=== PATIENT | male | born 1980 | race Caucasian/White ===

== ENCOUNTER 2017-02-06 14:05 | Emergency (ER) | payer BC ==
[2017-02-06] MEDS ORDERED: ACETAMINOPHEN 325 MG TAB PO ONE (14:23)
--- NOTE | 2017-02-06 14:27 | Emergency Department Record ---
History of Present Illness - General Chief complaint: Head Injury Stated complaint: SLURRED SPEECH,FATIGUE,CONFUSSION,HIT RT TENRIISM Time Seen by Provider: 02/06/17 14:15 Source: Patient Mode of Arrival: Ambulatory Limitations: No limitations Travel/[place]posure [place] [facility] [place] 21 [place] of Symptoms: No - History of Present Illness Initial comments: The patient was bending into his car to strip picker some trash and bumped the R side of his head on the door frame. He had no LOC but was mildly confused and with slightly slurred speech after. Due to that the patient's made him come to the ER. Presently the patient feels better but does have a slight VALDEZ. He states he has a remote hx of a head injury and whenever he even bumps his head slightly gets confused and feels unsteady. The patient states the symptoms he is feeling now are normal for him when he bumps his head. The patient did not fall after and is not on any blood thinners. MD Complaint: Head injury Onset/Timin -: Minutes(s) Mechanism of Injury: Other Location: Parietal Loss of Consciousness: No Place: Home Radiation: None Quality: Aching Consistency: Constant Provoking factors: None known Other Injuries: None Associated Symptoms: Confusion - Related Data Home Medications Medication Instructions Recorded Confirmed Last Taken No Home Med [NO HOME MEDS] 02/06/17 02/06/17 Unknown Allergies/Adverse reactions: Allergies Allergy/AdvReac Type Severity Reaction Status Date / Time naproxen Allergy HIVES Verified 02/06/17 14:16 Penicillins Allergy PT UNSURE Verified 02/06/17 14:16 OF REACTION prednisolone Allergy HIVES Verified 02/06/17 14:16 prednisone Allergy HIVES Verified 02/06/17 14:16 codeine AdvReac VOMITING Verified 02/06/17 14:16 Travel Screening - Travel/Exposure Within Last 30 Days Have you traveled within the last 30 days?: No Review of Systems Constitutional: Denies: Chills, Fever Eyes: Denies: Eye discharge ENT: Denies: Congestion Respiratory: Denies: Cough, Dyspnea Past Medical History - SOCIAL HISTORY Smoking Status: Never smoker Alcohol Use: None Drug Use: None - RESPIRATORY Hx Respiratory Disorders: No - CARDIOVASCULAR Hx Cardio Disorders: No - NEURO Hx Neuro Disorders: Yes Hx Headaches: Yes - GI Hx GI Disorders: No - Hx Genitourinary Disorders: No - ENDOCRINE Hx Endocrine Disorders: No - MUSCULOSKELETAL Hx Musculoskeletal Disorders: No - PSYCH Hx Psych Problems: No - HEMATOLOGY/ONCOLOGY Hx Hematology/Oncology Disorders: No Family Medical History Any Significant Family History?: No Physical Exam - General General Appearance: Alert, Oriented x3, Cooperative, No acute distress - Head Head exam: Atraumatic, Normocephalic, Normal inspection (There are no areas of erythema or edema or any signs of any injury.) Head exam detail: negative: Abrasion, Contusion - Eye Eye exam: Normal appearance, PERRL, EOMI - ENT ENT exam: TM's normal bilaterally - Neck Neck exam: Normal inspection, Full ROM. negative: Lymphadenopathy, Meningismus , Tenderness - Respiratory Respiratory exam: Normal lung sounds bilaterally. negative: Respiratory distress - Cardiovascular Cardiovascular Exam: Regular rate, Normal rhythm, Normal heart sounds - GI/Abdominal GI/Abdominal exam: Soft, Normal bowel sounds. negative: Tenderness - Extremities Extremities exam: Normal inspection, Full ROM, Normal capillary refill. negative: Tenderness - Neurological Neurological exam: Alert, Normal gait, Oriented X3, Reflexes normal. negative: Abnormal gait, Altered, Motor sensory deficit Course Vital Signs 02/06/17 14:09 Temperature 97.6 F Pulse Rate 101 H Respiratory 18 Rate Blood Pressure 110/94 Pulse Ox 98 - Reevaluation(s) Reevaluation #1: The patient is doing much better at this time. His speech is back to normal and he is answering all questions normally. His gait is steady and normal and he has a neg Drift and Rhomberg exams. I did discuss the neg head CT with the patient and the need to F/U if not 100% improved the next 1-2 days. 02/06/17 15:42 Medical Decision Making - Data Complexity MDM Data: X-Ray Ordered and/or Reviewed - Radiology Data Radiology results: Report reviewed (Head CT: Neg.) Disposition Disposition: Discharge Clinical Impression: Minor head injury Qualifiers: Encounter type: initial encounter Qualified Code(s): S00.90XA - Unspecified superficial injury of unspecified part of head, initial encounter Disposition: Home, Self-Care Condition: (1) Good Instructions: Concussion (ED) Additional Instructions: Please use Tylenol for pain and rest. Please see your PCP if not 100% better in 1-2 days. Return to the ER for any increased head pain, slurred speech, confusion or balance issues. Forms: Patient Portal Access Time of Disposition: 15:41 Quality - Quality Measures Quality Measures: N/A - Blood Pressure Screening View Details: Yes Does Patient Have Any of the Following: No Blood Pressure Classification: Pre-Hypertensive BP Reading Systolic Measurement: 122 Diastolic Measurement: 85 Screening for High Blood Pressure: < Pre-Hypertensive BP, F/U Documented > [ G8950] Pre-Hypertensive Follow-up Interventions: Referral to alternative/primary care provider.
--- NOTE | 2017-02-07 07:33 | CT SCAN REPORT ---
EXAM: CT OF THE BRAIN WITHOUT CONTRAST HISTORY: HEADACHE. TECHNIQUE: Sequential axial images were obtained from the foramen magnum to the vertex without contrast administration. FINDINGS: The brain volume is normal. No large territorial infarct, hemorrhage, mass effect, or midline shift. No extraaxial fluid collection. The orbits, paranasal sinuses, and mastoid air cells are normal. IMPRESSION: NO ACUTE INTRACRANIAL ABNORMALITY IS APPRECIATED. JOB NUMBER: [id number] MTDD
== END 2017-02-06 15:53 | disposition home or self-care (01) ==
LOC: ER 14:05
DX: S00.90XA Unspecified superficial injury of unspecified part of head, initial encounter (principal); R51 Headache; R47.81 Slurred speech; Y92.007 Garden or yard of unspecified non-institutional (private) residence as the place of occurrence of the external cause
CPT/HCPCS: 70450; 99283

== ENCOUNTER 2017-12-27 11:04 | Emergency (ER) | payer BC ==
--- NOTE | 2017-12-27 11:35 | Emergency Department Record ---
History of Present Illness - General Chief complaint: Lower Extremity Pain Stated complaint: LEG PAIN Time Seen by Provider: 12/27/17 11:18 Source: Patient, RN notes reviewed Mode of Arrival: Wheelchair - History of Present Illness Initial comments: right ankle pain lateral ankle and no trauma wake up with pain during the night and the ankle appears swollen and he stated he has elevated uric acid but never had any joint pain. No calf pain or thigh pain. Onset/Timin -: Hour(s) Location: Right, Ankle, Lower Leg History of Same: No (ended up being gout) Severity scale (1-10): 7 Improves with: Nothing Worsens with: Nothing - Related Data Home Medications Medication Instructions Recorded Confirmed Last Taken Loratadine/Pseudoephedrine 1 tab PO DAILY 12/27/17 12/27/17 Unknown [Claritin-D 24 Hour Tablet] Previous Rx's Medication Instructions Recorded Colchicine [Colcrys] 0.6 mg PO TID #10 tab 12/27/17 Allergies Allergy/AdvReac Type Severity Reaction Status Date / Time naproxen Allergy HIVES Verified 12/27/17 11:16 Penicillins Allergy PT UNSURE Verified 12/27/17 11:16 OF REACTION prednisolone Allergy HIVES Verified 12/27/17 11:16 prednisone Allergy HIVES Verified 12/27/17 11:16 codeine AdvReac VOMITING Verified 12/27/17 11:16 Travel Screening - Travel/Exposure Within Last 30 Days Have you traveled within the last 30 days?: No - Travel/Exposure Within Last Year Have you traveled outside the [place] in the last year?: No - Additonal Travel Details Have you been exposed to anyone with a communicable illness?: No - Travel Symptoms Symptom Screening: None Review of Systems Reviewed: No additional complaints except as noted below Constitutional: Reports: As per HPI. Denies: Chills, Fever, Malaise, Night sweats, Weakness, Weight change Eyes: Reports: As per HPI. Denies: Eye discharge, Eye pain, Photophobia, Vision change ENT: Reports: As per HPI. Denies: Congestion, Dental pain, Ear pain, Epistaxis , Hearing loss, Throat pain Respiratory: Reports: As per HPI. Denies: Cough, Dyspnea, Hemoptysis, Stridor, Wheezes Cardiovascular: Reports: As per HPI. Denies: Arrhythmia, Chest pain, Dyspnea on exertion, Edema, Murmurs, Orthopnea, Palpitations, Paroxysmal nocturnal dyspnea, Rheumatic Fever, Syncope Endocrine: Reports: As per HPI. Denies: Fatigue, Heat or cold intolerance, Polydipsia, Polyuria Gastrointestinal: Reports: As per HPI. Denies: Abdominal pain, Constipation, Diarrhea, Hematemesis, Hematochezia, Melena, Nausea, Vomiting Genitourinary: Reports: As per HPI. Denies: Dysuria, Frequency, Hematuria, Incontinence, Retention, Testicular pain, Testicular mass, Urgency Musculoskeletal: Reports: As per HPI, Arthralgia. Denies: Back pain, Gout, Joint swelling, Myalgia, Neck pain Skin: Reports: As per HPI. Denies: Bruising, Change in color, Change in hair/ nails, Lesions, Pruritus, Rash Neurological: Reports: As per HPI. Denies: Abnormal gait, Confusion, Headache, Numbness, Paresthesias, Seizure, Tingling, Tremors, Vertigo, Weakness Psychiatric: Reports: As per HPI. Denies: Anxiety, Auditory hallucinations, Depression, Homicidal thoughts, Suicidal thoughts, Visual hallucinations Hematological/Lymphatic: Reports: As per HPI. Denies: Anemia, Blood Clots, Easy bleeding, Easy bruising, Swollen glands Past Medical History - SOCIAL HISTORY Smoking Status: Never smoker Alcohol Use: None Drug Use: None - RESPIRATORY Hx Respiratory Disorders: No - CARDIOVASCULAR Hx Cardio Disorders: No - NEURO Hx Neuro Disorders: Yes Hx Headaches: Yes Hx TIA: Yes - GI Hx GI Disorders: No - Hx Genitourinary Disorders: No - ENDOCRINE Hx Endocrine Disorders: No - MUSCULOSKELETAL Hx Musculoskeletal Disorders: Yes Hx Gout: Yes - PSYCH Hx Psych Problems: No - HEMATOLOGY/ONCOLOGY Hx Hematology/Oncology Disorders: No Family Medical History Any Significant Family History?: No Physical Exam - General General Appearance: Alert, Oriented x3, Cooperative, No acute distress - Head Head exam: Normal inspection - Eye Eye exam: Normal appearance, PERRL Pupils: Normal accommodation - ENT ENT exam: Normal exam, Mucous membranes moist, Normal external ear exam, Normal orophraynx, TM's normal bilaterally Ear exam: Normal external inspection. negative: External canal tenderness Nasal Exam: Normal inspection. negative: Discharge, Sinus tenderness Mouth exam: Normal external inspection, Tongue normal Teeth exam: Normal inspection. negative: Dental caries Throat exam: Normal inspection. negative: Tonsillar erythema, Tonsillar exudate - Neck Neck exam: Normal inspection, Full ROM. negative: Tenderness - Respiratory Respiratory exam: Normal lung sounds bilaterally. negative: Respiratory distress - Cardiovascular Cardiovascular Exam: Regular rate, Normal rhythm, Normal heart sounds - GI/Abdominal GI/Abdominal exam: Soft, Normal bowel sounds. negative: Tenderness - Rectal Rectal exam: Deferred - exam: Deferred - Extremities Extremities exam: Normal inspection, Full ROM, Normal capillary refill. negative: Tenderness - Back Back exam: Reports: Normal inspection, Full ROM. Denies: Muscle spasm, Rash noted, Tenderness - Neurological Neurological exam: Alert, Normal gait, Oriented X3, Reflexes normal - Psychiatric Psychiatric exam: Normal affect, Normal mood - Skin Skin exam: Dry, Intact, Normal color, Warm Course Vital Signs 12/27/17 11:05 Temperature 97.9 F Pulse Rate 85 Respiratory 20 Rate Blood Pressure 123/65 Pulse Ox 96 - Reevaluation(s) Reevaluation #1: patient is reluctant to take any medication and he agreed to taking one colcichine pill and I told I will write a script to continue and he said he would rather just adjust his diet and use chang extract. I told him the gout could cause problems with his joints ie deformities. 12/27/17 12:09 Reevaluation #2: cancil the imaging because the diagnoses obtained with lab work and clinical exam. 12/27/17 12:11 Medical Decision Making - Lab Data Result diagrams: 12/27/17 11:27 Disposition Clinical Impression: Gout attack Qualifiers: Gout site: ankle Gout etiology: idiopathic Laterality: right Qualified Code(s) : M10.071 - Idiopathic gout, right ankle and foot Disposition: Home, Self-Care Condition: (1) Good Additional Instructions: elevate leg use heat on his ankle follow up with family and if worse take colchicine three times a day for 2 days Prescriptions: Colchicine [Colcrys] 0.6 mg PO TID #10 tab Forms: Patient Portal Access Time of Disposition: 12:15 Quality - Quality Measures Quality Measures: N/A - Blood Pressure Screening Does Patient Have Any of the Following: No Blood Pressure Classification: Pre-Hypertensive BP Reading Systolic Measurement: 123 Diastolic Measurement: 65 Screening for High Blood Pressure: < Pre-Hypertensive BP, F/U Documented > [ G8950] Pre-Hypertensive Follow-up Interventions: Referral to alternative/primary care provider.
[2017-12-27 11:36] LABS: BASO % 0.2 % (0-6); EOS % 1.3 % (0-6); GRAN % 62.1 % (47-80); HEMOGLOBIN 15.6 gm/dl (14.0-18.0); LYMPH % 28.8 % (16-45); MEAN CELL VOLUME 93.7 fl (81-97); MEAN CORPUSCULAR HEMOGLOBIN 31.8 pg (27-33); MEAN CORPUSCULAR HGB CONC 33.9 g/dl (32-36); MONO % 7.6 % (0-9); PLATELET COUNT 256 K/uL (130-400); RED BLOOD COUNT 4.91 M/uL (4.40-5.70); RED CELL DISTRIBUTION WIDTH 13.1 % (11.5-14.5); WHITE BLOOD COUNT W/O DIFF 8.7 K/uL (4.2-12.2)
[2017-12-27] MEDS ORDERED: COLCHICINE 0.6 MG TABLET PO ONE (11:59)
== END 2017-12-27 12:40 | disposition home or self-care (01) ==
LOC: ER 11:04
DX: M10.071 Idiopathic gout, right ankle and foot (principal)
CPT/HCPCS: 84550; 85025; 99283; 99284

== ENCOUNTER 2018-09-12 19:08 | Emergency (ER) | payer BC ==
[2018-09-12] MEDS ORDERED: KETOROLAC 30 MG/ML VIAL IVP ONE (20:00)
[2018-09-12] MEDS ORDERED: 0.9 % SODIUM CHLORIDE 1,000 ML BAG IV ONE (20:00)
[2018-09-12 20:14] LABS: BASO % 0.2 % (0-6); EOS % 3.6 % (0-6); GRAN % 59.8 % (47-80); LYMPH % 29.7 % (16-45); MEAN CELL VOLUME 94.1 fl (81-97); MEAN CORPUSCULAR HEMOGLOBIN 31.4 pg (27-33); MEAN CORPUSCULAR HGB CONC 33.3 g/dl (32-36); MEAN PLATELET VOLUME 10.6 fl (7.4-10.4); MONO % 6.7 % (0-9); PLATELET COUNT 250 K/uL (130-400); RED BLOOD COUNT 4.78 M/uL (4.40-5.70); RED CELL DISTRIBUTION WIDTH 13.9 % (11.5-14.5); WHITE BLOOD COUNT W/O DIFF 10.2 K/uL (4.2-12.2)
[2018-09-12 20:18] LABS: URINE APPEARANCE CLEAR; URINE BILIRUBIN NEGATIVE (NEGATIVE); URINE BLOOD NEGATIVE (NEGATIVE); URINE COLOR YELLOW; URINE GLUCOSE (UA) NEGATIVE (NEGATIVE); URINE KETONE 40 mg/dL (NEGATIVE); URINE LEUKOCYTE ESTERASE NEGATIVE (NEGATIVE); URINE NITRITE NEGATIVE (NEGATIVE); URINE PROTEIN NEGATIVE (NEGATIVE); URINE UROBILINOGEN 0.2 E.U./dL (0.20 - 1.00)
[2018-09-12 20:24] LABS: BLOOD UREA NITROGEN 16 mg/dL (6-20); CREATININE 0.9 mg/dL (0.7-1.2); EST GLOMERULAR FILTRATION RATE > 60 mL/min; LIPASE 39 U/L (13-60); TOTAL PROTEIN 6.8 g/dL (6.6-8.7)
[2018-09-12 20:26] LABS: GLUCOSE,RANDOM 93 mg/dL (74-109)
[2018-09-12 20:29] LABS: ALBUMIN 4.2 g/dL (4.0-5.0); ALKALINE PHOSPHATASE 78 U/L (40-129); ALT/SGPT 31 U/L (<41); AST/SGOT 20 U/L (10.0-50.0); BILIRUBIN,DIRECT < 0.2 mg/dL (0-0.3)
--- NOTE | 2018-09-12 21:52 | Emergency Department Record ---
History of Present Illness - General Chief complaint: Flank Pain Stated complaint: RT ABDOMINAL PAIN RADIATING TO BASCK Time Seen by Provider: 09/12/18 19:52 Source: Patient Mode of Arrival: Ambulatory Limitations: No limitations - History of Present Illness Initial comments: pt has pain in r abdomen.he has nausea but no v/c/d. pain got worse when he laughed. Onset/Timin -: Days(s) Location: Right flank Radiation: RLQ Severity: Moderate Severity scale (1-10): 8 Consistency: Intermittent, Getting worse Improves with: Rest Worsens with: None Other Reports: Nausea/vomiting - Related Data Sexually active: Yes Previous Rx's Medication Instructions Recorded Albuterol Sulfate [Proair Hfa] 2 puff IH QID PRN #1 inhaler 02/10/18 Dicyclomine HCl [Bentyl] 10 mg PO Q8H #10 cap 09/12/18 Allergies Allergy/AdvReac Type Severity Reaction Status Date / Time naproxen Allergy HIVES Unverified 04/12/18 09:25 Penicillins Allergy PT UNSURE Unverified 04/12/18 09:25 OF REACTION prednisolone Allergy HIVES Unverified 04/12/18 09:25 prednisone Allergy HIVES Unverified 04/12/18 09:25 codeine AdvReac VOMITING Unverified 04/12/18 09:25 Travel Screening - Travel/Exposure Within Last 30 Days Have you traveled within the last 30 days?: No - Travel Symptoms Symptom Screening: None Review of Systems Reviewed: No additional complaints except as noted below Constitutional: Reports: As per HPI. Denies: Chills, Fever, Malaise, Night sweats, Weakness, Weight change Eyes: Reports: As per HPI. Denies: Eye discharge, Eye pain, Photophobia, Vision change ENT: Reports: As per HPI. Denies: Congestion, Dental pain, Ear pain, Epistaxis , Hearing loss, Throat pain Respiratory: Reports: As per HPI. Denies: Cough, Dyspnea, Hemoptysis, Stridor, Wheezes Cardiovascular: Reports: As per HPI. Denies: Arrhythmia, Chest pain, Dyspnea on exertion, Edema, Murmurs, Orthopnea, Palpitations, Paroxysmal nocturnal dyspnea, Rheumatic Fever, Syncope Endocrine: Reports: As per HPI. Denies: Fatigue, Heat or cold intolerance, Polydipsia, Polyuria Gastrointestinal: Reports: As per HPI. Denies: Abdominal pain, Constipation, Diarrhea, Hematemesis, Hematochezia, Melena, Nausea, Vomiting Genitourinary: Reports: As per HPI. Denies: Dysuria, Frequency, Hematuria, Incontinence, Retention, Testicular pain, Testicular mass, Urgency Musculoskeletal: Reports: As per HPI. Denies: Arthralgia, Back pain, Gout, Joint swelling, Myalgia, Neck pain Skin: Reports: As per HPI. Denies: Bruising, Change in color, Change in hair/ nails, Lesions, Pruritus, Rash Neurological: Reports: As per HPI. Denies: Abnormal gait, Confusion, Headache, Numbness, Paresthesias, Seizure, Tingling, Tremors, Vertigo, Weakness Psychiatric: Reports: As per HPI. Denies: Anxiety, Auditory hallucinations, Depression, Homicidal thoughts, Suicidal thoughts, Visual hallucinations Hematological/Lymphatic: Reports: As per HPI. Denies: Anemia, Blood Clots, Easy bleeding, Easy bruising, Swollen glands Past Medical History - SOCIAL HISTORY Smoking Status: Never smoker Alcohol Use: None Drug Use: None - RESPIRATORY Hx Respiratory Disorders: No - CARDIOVASCULAR Hx Cardio Disorders: No - NEURO Hx Neuro Disorders: Yes Hx Headaches: Yes Hx TIA: Yes - GI Hx GI Disorders: No - Hx Genitourinary Disorders: No - ENDOCRINE Hx Endocrine Disorders: No - MUSCULOSKELETAL Hx Musculoskeletal Disorders: Yes Hx Gout: Yes - PSYCH Hx Psych Problems: No - HEMATOLOGY/ONCOLOGY Hx Hematology/Oncology Disorders: No Family Medical History Any Significant Family History?: Yes Family Hx Comment (NOT TO BE USED IN PLACE OF ITEMS BELOW): Mom-celiac Hx Cancer: Grandparents *Cancer Comment: multiple myeloma Hx Diabetes: Father Physical Exam - General General Appearance: Alert, Oriented x3, Cooperative, Mild distress - Head Head exam: Normal inspection - Eye Eye exam: Normal appearance, PERRL, EOMI Pupils: Normal accommodation - ENT ENT exam: Normal exam, Mucous membranes moist, Normal external ear exam, Normal orophraynx Ear exam: Normal external inspection. negative: External canal tenderness Nasal Exam: Normal inspection. negative: Discharge, Sinus tenderness Mouth exam: Normal external inspection, Tongue normal Teeth exam: Normal inspection. negative: Dental caries Throat exam: Normal inspection. negative: Tonsillar erythema, Tonsillar exudate - Neck Neck exam: Normal inspection, Full ROM. negative: Tenderness - Respiratory Respiratory exam: Normal lung sounds bilaterally. negative: Respiratory distress - Cardiovascular Cardiovascular Exam: Regular rate, Normal rhythm, Normal heart sounds - GI/Abdominal GI/Abdominal exam: Soft, Normal bowel sounds, Tenderness (r abdomen) - Rectal Rectal exam: Deferred - exam: Deferred - Extremities Extremities exam: Normal inspection, Full ROM, Normal capillary refill. negative: Tenderness - Back Back exam: Reports: Normal inspection, Full ROM. Denies: Muscle spasm, Rash noted, Tenderness - Neurological Neurological exam: Alert, CN II-XII intact, Normal gait, Oriented X3 - Psychiatric Psychiatric exam: Normal affect, Normal mood - Skin Skin exam: Dry, Intact, Normal color, Warm Course Vital Signs 09/12/18 09/12/18 19:17 21:08 Temperature 98.2 F Pulse Rate [ 82 73 Left] Respiratory 16 20 Rate Blood Pressure 139/95 118/73 [Left Arm] Pulse Ox 97 95 - Reevaluation(s) Reevaluation #1: 09/12/18 21:56 pt feels better. pt is tender over gb and was told he should have us of gb Medical Decision Making - Lab Data Result diagrams: 09/12/18 20:00 09/12/18 20:00 Lab Results 09/12/18 09/12/18 09/12/18 Range/Units 20:00 20:00 20:00 WBC 10.2 (4.2-12.2) K/uL RBC 4.78 (4.40-5.70) M/uL Hgb 15.0 (14.0-18.0) gm/dl Hct 45.0 (42.0-52.0) % MCV 94.1 (81-97) fl MCH 31.4 (27-33) pg MCHC 33.3 (32-36) g/dl RDW 13.9 (11.5-14.5) % Plt Count 250 (130-400) K/uL MPV 10.6 H (7.4-10.4) fl Gran % 59.8 (47-80) % Lymphocytes % 29.7 (16-45) % Monocytes % 6.7 (0-9) % Eosinophils % 3.6 (0-6) % Basophils % 0.2 (0-6) % Sodium 140 (136-145) mmol/L Potassium 4.3 (3.4-4.5) mmol/L Chloride 99 (98-107) mmol/L Carbon Dioxide 26.0 (22-29) mmol/L Anion Gap 15.0 (7-16) BUN 16 (6-20) mg/dL Creatinine 0.9 (0.7-1.2) mg/dL Estimated GFR > 60 mL/min Random Glucose 93 (74-109) mg/dL Calcium 9.1 (8.6-10.0) mg/dL Total Bilirubin 0.50 (0.2-1.0) mg/dL Direct Bilirubin < 0.2 (0-0.3) mg/dL AST 20 (10.0-50.0) U/L ALT 31 (<41) U/L Alkaline Phosphatase 78 (40-129) U/L Total Protein 6.8 (6.6-8.7) g/dL Albumin 4.2 (4.0-5.0) g/dL Lipase 39 (13-60) U/L Urine Color Yellow Urine Appearance Clear Urine pH 6.0 (5.0-8.0) Ur Specific [place] 1.010 (1.002-1.030) Urine Protein Negative (NEGATIVE) Urine Glucose (UA) Negative (NEGATIVE) Urine Ketones 40 mg/dl H (NEGATIVE) Urine Blood Negative (NEGATIVE) Urine Nitrite Negative (NEGATIVE) Urine Bilirubin Negative (NEGATIVE) Urine Urobilinogen 0.2 (0.20 - 1.00) E.U./dL Ur Leukocyte Esterase Negative (NEGATIVE) Disposition Disposition: Discharge Clinical Impression: Biliary colic Disposition: Home, Self-Care Condition: (1) Good Instructions: Biliary Colic (ED) Additional Instructions: follow up with family doctor and have ultrasound of gall bladder. return sooner if worse. eat bland diet Prescriptions: Dicyclomine HCl [Bentyl] 10 mg PO Q8H #10 cap Quality - Quality Measures Quality Measures: N/A - Blood Pressure Screening Does Patient Have Any of the Following: No Blood Pressure Classification: Normal BP Reading Systolic Measurement: 118 Diastolic Measurement: 73 Screening for High Blood Pressure: < Normal BP, F/U Not Required > [G8779]
[2018-09-12] MEDS ORDERED: DICYCLOMINE HCL 10 MG/ML AMPUL IM ONE (21:58)
--- NOTE | 2018-09-14 12:31 | CT SCAN REPORT ---
EXAM: CT SCAN OF THE ABDOMEN AND PELVIS WITHOUT CONTRAST HISTORY: RIGHT SIDED ABDOMINAL PAIN AND RIGHT LOWER QUADRANT ABDOMINAL PAIN FOR THE PAST TWO DAYS. TECHNIQUE: Standard CT imaging of the abdomen and pelvis was performed in the axial plane without contrast. Additional coronal and sagittal reformatted images were also performed. Comparison: None. FINDINGS: The lung bases are clear. The liver, gallbladder, biliary tree, pancreas, spleen, and adrenal glands are normal. The kidneys and ureters are unremarkable. There is no hydronephrosis or urinary tract calculus. The aorta is normal in caliber. There is no retroperitoneal lymphadenopathy. The large and small bowel loops including the appendix are normal. There are no focal inflammatory changes. There is no pneumoperitoneum or ascites. The urinary bladder and prostate gland appear normal. The abdominal wall is unremarkable. There are no acute osseous abnormalities. IMPRESSION: 1. NO ACUTE INTRAABDOMINAL PATHOLOGY. 2. THERE IS NO URINARY TRACT CALCULUS OR OBSTRUCTIVE UROPATHY. 3. NORMAL APPENDIX. JOB NUMBER: [id number] MTDD
== END 2018-09-12 22:12 | disposition home or self-care (01) ==
LOC: ER 19:08
DX: K80.50 Calculus of bile duct without cholangitis or cholecystitis without obstruction (principal); R11.0 Nausea
CPT/HCPCS: 99284 ×2; 96374; 83690; 85025; 80076; 80048; 81003; 74176; J1885; J7030